=== PATIENT | female | born 1990 | race Hispanic/Latino ===

== ENCOUNTER 2017-03-04 08:40 | Inpatient (IN) | payer BC ==
[2017-03-04] MEDS: PITOCin/NS 30 UNIT/500ML 30 UNITS/500 ML BAG IV SCH ×4 (10:45→18:14)
[2017-03-04] MEDS: LACTATED RINGERS 1,000 ML IV SCH ×3 (10:45→23:43)
[2017-03-04] MEDS ORDERED: LACTATED RINGERS 1,000 ML IV SCH (11:00)
[2017-03-04] MEDS ORDERED: PITOCin/NS 30 UNIT/500ML 30 UNITS/500 ML BAG IV SCH ×2 (11:00→11:30)
[2017-03-04 11:08] LABS: Hematocrit 35.4 % (30.3-42.9); Hemoglobin 11.8 gm/dl (10.1-14.3); Mean Corpuscular HGB Conc 33 % (30-34); Mean Corpuscular Hemoglobin 27 pg (28-32); Mean Corpuscular Volume 81 fl (79-97); Platelet Count 167 K/mm3 (140-440); Red Blood Count 4.37 M/mm3 (3.65-5.03); Red Cell Distribution Width 17.5 % (13.2-15.2); White Blood Count 14.6 K/mm3 (4.5-11.0)
[2017-03-04] MEDS ORDERED: PHENERGAN PO PRN (11:30)
[2017-03-04] MEDS ORDERED: ZOFRAN IV PRN (11:30)
[2017-03-04] MEDS ORDERED: PITOCin/NS 20 UNIT/1000ML DRIP 20 UNITS/1,000 ML BAG IV SCH (11:30)
[2017-03-04] MEDS ORDERED: SUBLIMAZE IV PRN (11:30)
[2017-03-04] MEDS ORDERED: BRETHINE IVP PRN (11:30)
[2017-03-04] MEDS ORDERED: STADOL IV PRN (11:30)
[2017-03-04] MEDS ORDERED: ePHEDrine SULFATE IV PRN (11:30)
[2017-03-04] MEDS ORDERED: MINERAL OIL PO PRN (11:30)
[2017-03-04] MEDS: CLEOCIN 900 MG/50 mL 900 MG/50 ML BAG IV SCH ×2 (11:36→20:02)
[2017-03-04] MEDS ORDERED: BRETHINE SUB-Q PRN (12:00)
[2017-03-04] MEDS ORDERED: XYLOCAINE 2% INFILTRATI ONE (12:00)
--- NOTE | 2017-03-04 16:35 | History and Physical Report ---
History of Present Illness Date of examination: 03/04/17 Date of admission: 03/04/17 08:40 Chief complaint: I'm overdue History of present illness: Patient is a 27 year old who presents at 40.5 weeks for induction due to macrosomic fetus with EFW greater than 9 pounds. Patient has had an uncomplicated course and entered care in the first trimester. All labs were normal. She is GBS positive. Past History Past Medical History: no pertinent history Past Surgical History: no surgical history Family/Genetic History: none Social history: - Obstetrical History Expected Date of Delivery: 02/27/17 Actual Gestation: 40 Week(s) 6 Day(s) : 2 Number of Living Children: 1 Medications and Allergies Allergies Allergy/AdvReac Type Severity Reaction Status Date / Time Penicillins AdvReac Intermediate Hives Verified 12/18/15 00:52 Home Medications Medication Instructions Recorded Confirmed Last Taken Type HYDROcodone/APAP 5-325 [[place] 2 each PO Q6H PRN #40 tablet 12/20/15 Unknown Rx 5-325 mg TAB] Ibuprofen [Motrin 600 MG tab] 600 mg PO Q6H #40 tablet 12/20/15 Unknown Rx Active Meds: Active Medications Butorphanol Tartrate (Stadol) 2 mg IV Q2H PRN PRN Reason: Pain , Severe (7-10) Ephedrine Sulfate (Ephedrine Sulfate) 10 mg IV Q2M PRN PRN Reason: Hypotension Stop: 03/05/17 11:29 Fentanyl (Sublimaze) 100 mcg IV Q2H PRN PRN Reason: Labor Pain Clindamycin HCl (Cleocin 900 Mg/50 Ml) 900 mg in 50 mls @ 100 mls/hr IV Q8H SOREN PRN Reason: Protocol Last Admin: 03/04/17 11:36 Dose: 100 mls/hr Lactated Ringer's (Lactated Ringers) 1,000 mls @ 125 mls/hr IV DIRECT SOREN Last Admin: 03/04/17 10:45 Dose: 125 mls/hr Oxytocin/Sodium Chloride (Pitocin/Ns 20 Unit/1000ml Drip) 20 units in 1,000 mls @ 125 mls/hr IV DIRECT SOREN Oxytocin/Sodium Chloride (Pitocin/Ns 30 Unit/500ml) 30 units in 500 mls @ 1 mls /hr IV TITR SOREN; 1 MILLIUNITS/MIN PRN Reason: Protocol Last Admin: 03/04/17 12:11 Dose: 2 milliunits/min, 2 mls/hr Oxytocin/Sodium Chloride (Pitocin/Ns 30 Unit/500ml) 30 units in 500 mls @ 2 mls /hr IV TITR SOREN PRN Reason: Protocol Influenza Virus Vaccine Quadrival (Fluarix Quad [id number](36 Mos+)) 0.5 ml IM .ONCE ONE Stop: 03/05/17 12:01 Mineral Oil (Mineral Oil) 30 ml PO QHS PRN PRN Reason: Constipation Ondansetron HCl (Zofran) 4 mg IV Q8H PRN PRN Reason: Nausea And Vomiting Promethazine HCl (Phenergan) 25 mg PO Q6H PRN PRN Reason: Nausea And Vomiting Review of Systems All systems: negative Constitutional: weight gain Genitourinary: leakage of fluid, pelvic pain, contractions - Vital Signs Vital signs: Vital Signs Pulse BP 72 110/67 03/04/17 10:01 03/04/17 10:01 Temp Pulse Resp BP Pulse Ox 61 123/75 03/04/17 16:32 03/04/17 16:32 - Physical Exam Breasts: Positive: deferred Cardiovascular: Regular rate, Normal S1, Normal S2 Lungs: Positive: Clear to auscultation, Normal air movement Abdomen: Positive: normal appearance, soft, normal bowel sounds Genitourinary (Female): Positive: normal external genitalia, normal perenium Vagina: Positive: normal moisture Uterus: Positive: normal size, normal contour Extremities: Positive: normal Deep Tendon Reflex Grade: Normal +2 - Obstetrical Cervical Dilatation: 1 Cervical Effacement Percentage: 50 station: -3 Results Result Diagrams: 03/04/17 10:47 Abnormal lab results 03/04/17 Range/Units 10:47 WBC 14.6 H (4.5-11.0) K/mm3 MCH 27 L (28-32) pg RDW 17.5 H (13.2-15.2) % All other labs normal. Assessment and Plan Patient here with IUP at 40.5 weeks.Admit for induction of labor. Begin pitocin.Treat with clindamycin for GBS. Anticipate .
[2017-03-05] MEDS ORDERED: NARCAN 2 MG/2 ML IV PRN (00:44)
[2017-03-05] MEDS ORDERED: ePHEDrine SULFATE IV PRN (00:44)
--- NOTE | 2017-03-05 00:44 | Anesthesia Consultation ---
Anesthesia Consult and Med Hx Date of service: 03/05/17 - Airway Anesthetic Teeth Evaluation: Good ROM Head & Neck: Adequate Mental/Hyoid Distance: Adequate Mallampati Class: Class II Intubation Access Assessment: Probably Good - Pulmonary Exam CTA: Yes - Cardiac Exam Cardiac Exam: RRR - Pre-Operative Health Status ASA Pre-Surgery Classification: ASA2 Proposed Anesthetic Plan: Epidural - Pulmonary Hx Asthma: No COPD: No Hx Pneumonia: No - Cardiovascular System Hx Hypertension: No - Central Nervous System Hx Seizures: No Hx Psychiatric Problems: No - Endocrine Hx Renal Disease: No Hx End Stage Renal Disease: No Hx Hypothyroidism: No Hx Hyperthyroidism: No - Hematic Hx Anemia: No Hx Sickle Cell Disease: No - Other Systems Hx Alcohol Use: Yes
[2017-03-05] MEDS ORDERED: fentaNYL-BUPIV 2 MCG/ML-0.125% 200 MCG/100 ML BAG EPIDURAL SCH (01:00)
[2017-03-05] MEDS: CLEOCIN 900 MG/50 mL 900 MG/50 ML BAG IV SCH (04:05)
--- NOTE | 2017-03-05 06:51 | Procedure Note ---
OB Delivery Note - Delivery Date of Delivery: 03/05/17 Surgeon: SAVANA MORALES Estimated blood loss: 200cc - Vaginal Delivery presentation: vertex Delivery position: OA Intrapartum events: none Delivery induction: oxytocin Delivery monitor: external FHT, external uterine Route of delivery: Delivery placenta: spontaneous Delivery cord: nuchal cord, 3 umbilical vessels Episiotomy: none Delivery laceration: none Anesthesia: epidural Delivery comments: Viable male delivered over intact perineum with tight nuchal cord clamped and cut on perineum. placed on maternal abdomen. Placenta delivered spontaneously and intact. Weight 9 pounds 15 ounces. 4519 grams. apgars 8,8. no lacerations. Excellent hemostasis. Patient tolerated procedure well. - A at 1 minute: 8 at 5 minutes: 8 Gender: Male
[2017-03-05] MEDS ORDERED: MOTRIN PO ONE (08:15)
[2017-03-05] MEDS ORDERED: SODIUM CHLORIDE FLUSH SYRINGE 10 ML IV NR (10:28)
[2017-03-05] MEDS ORDERED: PHENERGAN PO PRN (10:28)
[2017-03-05] MEDS ORDERED: MILK OF MAGNESIA PO PRN (10:28)
[2017-03-05] MEDS ORDERED: TUCKS PAD TP PRN (10:28)
[2017-03-05] MEDS ORDERED: DULCOLAX PR PRN (10:28)
[2017-03-05] MEDS ORDERED: TYLENOL PO PRN (10:28)
[2017-03-05] MEDS ORDERED: LANSINOH TP PRN (10:28)
[2017-03-05] MEDS ORDERED: BENADRYL PO PRN (10:28)
[2017-03-05] MEDS ORDERED: PHENERGAN PR PRN (10:28)
[2017-03-05] MEDS ORDERED: ZOFRAN IV PRN (10:28)
[2017-03-05] MEDS ORDERED: MYLICON PO PRN (11:39)
[2017-03-05] MEDS ORDERED: Fluarix Quad 2017-2018(36 MOS+) IM ONE (12:00)
[2017-03-05] MEDS: COLACE PO SCH ×2 (12:56→21:35)
[2017-03-05] MEDS: MOTRIN PO SCH ×2 (12:56→18:05)
[2017-03-05] MEDS: PRENATAL VITAMIN PO SCH (12:56)
[2017-03-05 18:46] LABS: Hematocrit 32.8 % (30.3-42.9); Hemoglobin 10.5 gm/dl (10.1-14.3)
[2017-03-05] MEDS: NORCO 5/325 PO PRN (21:35)
[2017-03-06] MEDS: MOTRIN PO SCH ×5 (01:56→23:10)
[2017-03-06] MEDS ORDERED: BOOSTRIX IM ONE (06:00)
[2017-03-06] MEDS: PRENATAL VITAMIN PO SCH ×2 (08:32→10:00)
[2017-03-06] MEDS: COLACE PO SCH ×3 (08:32→23:10)
[2017-03-06] MEDS ORDERED: Fluarix Quad 2017-2018(36 MOS+) IM ONE (12:00)
[2017-03-06] MEDS: NORCO 5/325 PO PRN (15:10)
[2017-03-07] MEDS: MOTRIN PO SCH (06:32)
[2017-03-07] MEDS: NORCO 5/325 PO PRN (08:52)
[2017-03-07] MEDS: COLACE PO SCH (08:53)
[2017-03-07] MEDS: PRENATAL VITAMIN PO SCH (08:54)
--- NOTE | 2017-03-07 13:27 | Discharge Summary ---
Providers - Providers Date of Admission: 03/04/17 08:40 Date of discharge: 03/07/17 Attending physician: SAVANA MORALES Primary care physician: SAVANA MORALES Hospitalization Reason for admission: induction of labor, IUP at term Delivery: Episiotomy: none Laceration: none Other procedures: none complications: none Discharge diagnosis: IUP at term delivered [place] baby: male Condition at discharge: Good Disposition: DC-01 TO HOME OR SELFCARE Plan - Discharge Medications Prescriptions: HYDROcodone/APAP 5-325 [[place] 5-325 mg TAB] 2 each PO Q6H PRN #40 tablet PRN Reason: Pain, Moderate (4-6) Ibuprofen [Motrin 600 MG tab] 600 mg PO Q6H #40 tablet - Provider Discharge Summary Activity: routine, no sex for 6 weeks, no heavy lifting 4 weeks, no strenuous exercise Additional instructions: [] Smoking cessation referral if applicable(refer to patient education folder for contact #) [] Refer to [facility] Booklet Call your doctor immediately for: * Fever > 100.5 * Heavy vaginal bleeding ( >1 pad per hour) * Severe persistent headache * Shortness of breath * Reddened, hot, painful area to leg or breast * Drainage or odor from incision. * Keep incision clean and dry at all times and follow doctor's instructions regarding bathing/showering - Follow up plan Follow up: SAVANA MORALES MD [Primary Care Provider] - (RTO 4- 6 weeks ) Forms: [facility] Discharge Summary, Discharge Signature Page
--- NOTE | 2017-03-07 13:27 | Progress Note ---
Assessment and Plan O: VSS AF PP H/H: normal A: Stable PP day 2 Afterbirth Pains P: See Discharge Subjective - Subjective Date of service: 03/07/17 Patient reports: appetite normal, voiding normally, pain well controlled, ambulating normally [place]: doing well, nursing well Objective - Vital Signs Latest vital signs: Vital Signs Temp Pulse Resp BP 03/07/17 08:52 20 03/07/17 08:00 97.4 F L 79 18 105/57 03/07/17 00:00 98.2 F 79 18 97/56 03/06/17 17:45 98.7 F 80 18 110/78 Intake and Output 03/06/17 03/07/17 03/07/17 22:59 06:59 14:59 Intake Total 480 600 360 Balance 480 600 360 Intake: Oral 480 240 360 Intake, Free Water 360 Other: Total, Intake Amount 480 240 360 # Voids Void 1 1 1 - Exam Breasts: Present: normal Lungs: Present: Normal air movement Abdomen: Present: normal appearance, soft. Absent: distention, tenderness Uterus: Present: normal, firm, fundal height below umbilicus (2 below U, ML). Absent: bogginess, tenderness Extremities: Present: normal
[2017-03-07 18:18] VITALS: BP 102/60
== END 2017-03-07 14:27 | disposition home or self-care (01) | DRG 775 ==
LOC: LD 08:40 → OB 03-05 08:53
PROVIDERS: ADMIT Obstetrics & Gynecology; ATTEND Obstetrics & Gynecology
PROC: 10E0XZZ Delivery of Products of Conception, External Approach (ICD-10-PCS; principal; 2017-03-05)
PROC: 3E0P3VZ Introduction of Hormone into Female Reproductive, Percutaneous Approach (ICD-10-PCS; 2017-03-05)
PROC: 3E0S3BZ Introduction of Anesthetic Agent into Epidural Space, Percutaneous Approach (ICD-10-PCS; 2017-03-05)
PROC: 00HU33Z Insertion of Infusion Device into Spinal Canal, Percutaneous Approach (ICD-10-PCS; 2017-03-05)
PROC: 3E0234Z Introduction of Serum, Toxoid and Vaccine into Muscle, Percutaneous Approach (ICD-10-PCS; 2017-03-05)
DX: O36.63X0 Maternal care for excessive fetal growth, third trimester, not applicable or unspecified (principal); O99.824 Streptococcus B carrier state complicating childbirth; O69.1XX0 Labor and delivery complicated by cord around neck, with compression, not applicable or unspecified; Z3A.40 40 weeks gestation of pregnancy; Z37.0 Single live birth; Z88.0 Allergy status to penicillin; Z23 Encounter for immunization
CPT/HCPCS: 36415; 85014; 85018; 85027; 86850; 86900; 86901; 90471; 90686; 90715; 99211; G0008; G0463; J2590; J3010; J7120